=== PATIENT | female | born 1990 | race Caucasian/White ===

== ENCOUNTER 2018-10-05 11:01 | Emergency (ER) | payer OTHER, SELFPAY ==
[~2018-10-05] VITALS: Ht 162.6 cm; Wt 62.0 kg
[2018-10-05] MEDS ORDERED: ALPRAZOLAM 0.25 MG TABLET PO ONE (12:00)
[2018-10-05 12:21] VITALS: BP 127/71
== END 2018-10-05 12:22 | disposition home or self-care (01) ==
LOC: ER 11:01
DX: F41.9 Anxiety disorder, unspecified (principal); J35.8 Other chronic diseases of tonsils and adenoids; Z88.0 Allergy status to penicillin
CPT/HCPCS: 93005; 99284